=== PATIENT | male | born 1940 | race Caucasian/White ===

== ENCOUNTER 2018-02-14 16:25 | Emergency (ER) | payer SELFPAY ==
--- NOTE | 2018-02-14 17:29 | ERPHSYRPT ---
- History of Present Illness Time Seen by Provider: 02/14/18 17:23 Source: patient, family Exam Limitations: no limitations Patient Subjective Stated Complaint: pt reports an abscess in his mouth for approx 2 months, denies pain, denies dificulty swallowing, or breathing. pt reports problems sleeping. Triage Nursing Assessment: pt is aox3, pt afebrile pupils perrl, resps easy and non labored, radial pulses strong and equal, skin is pink warm dry. pt has no remaining teeth. a large abscess/raised area is noted to the interior of the mouth approx where the left lower molars would be that continues back into the jaw line and along the right side of the tongue. no drainage noted. area is beefy red in color. pt airway is patent, pt is able to swallow and clear secretions at this time. Physician History: The patient is a 77-year-old male with his son complaining of a reddish mass in the right side of the back of his throat. This mass has been there for at least 2 months and is not painful. He has no trouble swallowing or eating. He told his son about it today and was brought immediately to the ER because the patient has no doctor. The patient tells me he has no doctor because his 33 years ago and he hasn't wanted to see a doctor since. 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 He takes no daily medicines. His past medical history is significant for coronary artery disease and cardiac stent placement. He smoked for 20 years from approximately 15 years of age a 35 years old. Timing/Duration: gradual onset, weeks (8) Severity: moderate ENT Location: mouth Prearrival Treatment: no prearrival treatment Modifying Factors: Improves With: nothing Associated Symptoms: denies symptoms, No fever, No poor fluid intake, No poor solids intake, No swollen glands, No sore throat Allergies/Adverse Reactions: No Known Drug Allergies Allergy (Unverified 02/14/18 16:45) Hx Tetanus, Diphtheria Vaccination/Date Given: Yes Hx Influenza Vaccination/Date Given: No Hx Pneumococcal Vaccination/Date Given: No Immunizations Up to Date: Yes - Review of Systems Constitutional: No Fever, No Chills Eyes: No Symptoms Ears, Nose, & Throat: Other (enlarging red mass in right posterior mouth) Respiratory: No Cough, No Dyspnea Cardiac: No Chest Pain, No Edema, No Syncope Abdominal/Gastrointestinal: No Abdominal Pain, No Nausea, No Vomiting, No Diarrhea Genitourinary Symptoms: No Dysuria Musculoskeletal: No Back Pain, No Neck Pain Skin: No Rash Neurological: No Dizziness, No Focal Weakness, No Sensory Changes Psychological: No Symptoms Endocrine: No Symptoms Hematologic/Lymphatic: No Symptoms Immunological/Allergic: No Symptoms - Past Medical History Pertinent Past Medical History: Yes Neurological History: Stroke Cardiac History: Myocardial Infarction ([place]) Endocrine Medical History: Diabetes Type II - Past Surgical History Past Surgical History: Yes Cardiac: Cardiac Stent - Social History Smoking Status: Former smoker How long have you smoked: 49 years Drug Use: none Patient Lives Alone: No - Nursing Vital Signs Nursing Vital Signs: Initial Vital Signs Temperature 97.7 F 02/14/18 16:30 Pulse Rate 80 02/14/18 16:30 Respiratory Rate 20 02/14/18 16:30 Blood Pressure 155/74 02/14/18 16:30 O2 Sat by Pulse Oximetry 96 02/14/18 16:30 Pain Scale Pain Intensity 0 - Physical Exam General Appearance: no apparent distress, alert Eye Exam: bilateral eye: normal inspection Ear Exam: bilateral ear: auricle normal Nasal Exam: normal inspection Throat Exam: pharynx swelling (moderately large red easily friable mass in right posterior base of tongue and pharynx.) Neck Exam: supple Cardiovascular/Respiratory Exam: normal breath sounds, regular rate/rhythm Abdominal Exam: non-tender, soft Neurologic Exam: alert, oriented x 3, sensation nml, No motor deficits Skin Exam: normal color, warm, dry SpO2 Interpretation: normal SpO2: 96 Oxygen Delivery: Room Air Ordered Tests: Active Orders 24 hr Category Date Time Status BMP Stat Lab 02/14/18 17:50 Completed CBC W DIFF Stat Lab 02/14/18 17:50 Completed Lactic Acid Stat Lab 02/14/18 17:29 Results Lab/Rad Data: Laboratory Result Diagrams 02/14/18 17:50 02/14/18 17:50 Laboratory Results 02/14/18 02/14/18 02/14/18 Range/Units 17:50 17:50 17:29 WBC 6.2 (4.0-10.5) K/mm3 RBC 4.76 (4.1-5.6) M/mm3 Hgb 15.2 (12.5-18.0) gm/dl Hct 43.5 (42-50) % MCV 91.4 (78-100) fl MCH 31.9 (26-32) pg MCHC 34.9 (32-36) g/dl RDW 13.2 (11.5-14.0) % Plt Count 208 (150-450) K/mm3 MPV 9.3 (6-9.5) fl Gran % 65.4 (36.0-66.0) % Eos # (Auto) 0.16 (0-0.5) Absolute Lymphs (auto) 1.52 (1.0-4.6) Absolute Monos (auto) 0.43 (0.0-1.3) Lymphocytes % 24.7 (24.0-44.0) % Monocytes % 7.0 (0.0-12.0) % Eosinophils % 2.6 (0.00-5.0) % Basophils % 0.3 (0.0-0.4) % Absolute Granulocytes 4.03 (1.4-6.9) Basophils # 0.02 (0-0.4) Sodium 137 (137-145) mmol/L Potassium 5.0 (3.5-5.1) mmol/L Chloride 100 (98-107) mmol/L Carbon Dioxide 29 (22-30) mmol/L Anion Gap 13.8 (5-15) MEQ/L BUN 13 (9-20) mg/dL Creatinine 0.83 (0.66-1.25) mg/dL Estimated GFR > 60.0 ML/MIN Glucose 271 H (74-106) mg/dL Lactic Acid 2.4 H (0.4-2.0) Calcium 8.9 (8.4-10.2) mg/dL - Progress Discussed with : Other (discussed pt with Dr Chuck Robb of [facility] at [phone].) - Departure Time of Disposition: 18:44 Departure Disposition: Home Clinical Impression: Mass of oral cavity Condition: Stable Critical Care Time: No Additional Instructions: You have a mass in your oral cavity. I spoke with Dr. Chuck Robb at [facility] at [phone]. Please take the CD for the CT scan of your neck and call [facility] and ask to see Dr. Lanie Basurto within the week. Tell them that Dr. Chuck Robb advised the patient to do this.
[2018-02-14 17:57] LABS: BASOPHIL % 0.3 % (0.0-0.4); Basophil (Absolute #) 0.02 (0-0.4); Eosinophil % 2.6 % (0.00-5.0); Eosinophil (Absolute #) 0.16 (0-0.5); Granulocyte Absolute (ANC) 4.03 (1.4-6.9); Granulocytes % 65.4 % (36.0-66.0); Hematocrit 43.5 % (42-50); Hemoglobin 15.2 gm/dl (12.5-18.0); Lymphocyte (Absolute #) 1.52 (1.0-4.6); Lymphocytes % 24.7 % (24.0-44.0); Mean Cell Volume 91.4 fl (78-100); Mean Corpuscular Hemoglobin 31.9 pg (26-32); Mean Corpuscular Hgb Concent. 34.9 g/dl (32-36); Mean Platelet Volume 9.3 fl (6-9.5); Monocyte (Absolute #) 0.43 (0.0-1.3); Platelet Count 208 K/mm3 (150-450); Red Blood Count 4.76 M/mm3 (4.1-5.6); Red Cell Distribution Width 13.2 % (11.5-14.0); White Blood Count 6.2 K/mm3 (4.0-10.5)
[2018-02-14 17:57] LABS: Lactic Acid 2.4 (0.4-2.0)
[2018-02-14 18:17] LABS: ANION GAP 13.8 MEQ/L (5-15); BLOOD UREA NITROGEN 13 mg/dL (9-20); CHLORIDE 100 mmol/L (98-107); Calcium 8.9 mg/dL (8.4-10.2); Carbon Dioxide 29 mmol/L (22-30); Creatinine 1 0.83 mg/dL (0.66-1.25); Glucose 271 mg/dL (74-106); SODIUM 137 mmol/L (137-145)
[2018-02-14 20:17] VITALS: BP 135/79; PULSE 68; O2SAT 100
--- NOTE | 2018-02-14 21:41 | XRAY ---
Indication: Right oral/neck mass. Multiple contiguous axial images obtained through the neck using 80 cc Isovue 370 contrast. Comparison: None Patient is edentulous. There is a 3 x 3.7 cm enhancing soft tissue mass at the base of the tongue towards the right narrowing the oropharynx concerning for malignancy. Slightly prominent right submandibular lymph nodes, largest 9 x 15 mm possibly metastatic. Smaller scattered cervical lymph nodes bilaterally. Thyroid gland enhances with 7 mm right thyroid nodule/cyst. Parotid and submandibular glands are bilaterally symmetric. Major arteries and veins are normal in course and caliber. Previous right carotid endarterectomy. Osseous structures intact. Visualized cervical spine demonstrates moderate multilevel bridging endplate osteophytes. Base of the brain unremarkable. Lung apices demonstrates mild pulmonary emphysema. Impression: 1. Enhancing soft tissue mass at the right base of the tongue concerning for malignancy. Recommend direct laryngoscopic evaluation. 2. Prominent right submandibular lymph nodes. Rule out metastasis. 3. Incidental right thyroid nodule/cyst and pulmonary emphysema. Comment: Preliminary interpretation was made by [facility]. No critical discrepancy. CTDI 11.59
== END 2018-02-14 20:19 | disposition home or self-care (01) ==
LOC: ED 16:25
DX: K14.9 Disease of tongue, unspecified (principal)
CPT/HCPCS: 36000; 36415; 70491; 80048; 83605; 85025; 99284